=== PATIENT | male | born 1970 | race Caucasian/White ===

== ENCOUNTER 2018-11-16 21:02 | Emergency (ER) | payer MEDICAID ==
[~2018-11-16] VITALS: Ht 185.4 cm; Wt 85.9 kg
--- NOTE | 2018-11-16 22:01 | NUR ---
PT TO ROOM FROM LOBBY, GAIT STEADY.
[2018-11-16] MEDS ORDERED: ACETAMINOPHEN 325 MG TABLET ONE (22:56)
[2018-11-16 23:00] VITALS: BP 145/92
[2018-11-16] MEDS ORDERED: ACETAMINOPHEN 325 MG TABLET PO ONE (23:00)
--- NOTE | 2018-11-16 23:10 | NUR ---
PT REQUESTED TYLENOL FOR HEADACHE PRIOR TO DC, EDAPRN NOTIFIED. PT MEDICATED PER EMAR, TOLERATED WELL. PT A&O, NEURO INTACT. NO DRIFT, EQUAL GRASP BILATERALLY, FULL STRENGTH TO ALL EXTREMITIES. RESPS EVEN AND UNLABORED. PT GIVEN DC INSTRUCTIONS AND SCRIPT. PT AMB TO DC DESK WITH STEADY GAIT, NADN AT DC.
== END 2018-11-16 23:10 | disposition home or self-care (01) ==
LOC: ED 23:00
DX: J00 Acute nasopharyngitis [common cold] (principal); Z59.0 Homelessness
CPT/HCPCS: 99283

== ENCOUNTER 2018-11-19 20:13 | Emergency (ER) | payer MEDICAID ==
[~2018-11-19] VITALS: Ht 185.4 cm; Wt 87.0 kg
--- NOTE | 2018-11-19 21:00 | NUR ---
pt presents to ED with c/o anxiety due to recent homelessness, denies SI. pt also notes headache starting this pm when he was [place] a local [place] by security, states he gets headaches following stressful events. pt is a&ox4, resps even and unlabored, neuro intact. pt examined by MANNIE Dixon, awaiting social work consult.
--- NOTE | 2018-11-19 21:01 | NUR ---
ARVIN Gloria at bedside to speak with pt .
[2018-11-19] MEDS ORDERED: ACETAMINOPHEN 325 MG TABLET ONE (21:18)
[2018-11-19 21:24] VITALS: BP 148/88
--- NOTE | 2018-11-19 21:25 | NUR ---
pt medicated per emar, tolerated well. pt given resources for homlessness and discussed housing options with ARVIN Castro. pt A&o, resps even and unlabored, karen at fl. pt amb to fl desk with steady gait, all questions answered. Addendum: 11/19/18 at 2136 by JONAH pt medicated per emar, tolerated well. pt given resources for homlessness and discussed housing options with ARVIN Castro. pt A&o, resps even and unlabored, karen at fl. pt amb to dc desk with steady gait, all questions answered. pt provided with bus pass, sweatshirt, hat and gloves at fl.
[2018-11-19] MEDS ORDERED: ACETAMINOPHEN 325 MG TABLET PO ONE (21:30)
== END 2018-11-19 21:26 | disposition home or self-care (01) ==
LOC: ED 21:20
DX: F41.1 Generalized anxiety disorder (principal); M79.672 Pain in left foot; M79.671 Pain in right foot; Z00.00 Encounter for general adult medical examination without abnormal findings; Z95.0 Presence of cardiac pacemaker
CPT/HCPCS: 99284

== ENCOUNTER 2018-11-20 21:00 | Emergency (ER) | payer MEDICAID ==
[~2018-11-20] VITALS: Ht 185.4 cm; Wt 88.7 kg
--- NOTE | 2018-11-20 23:58 | NUR ---
pt called to room from lobby
[2018-11-21] MEDS ORDERED: IBUPROFEN 600 MG TABLET ONE (00:11)
--- NOTE | 2018-11-21 00:21 | NUR ---
PT HERE FOR COLD. PT MEDICATED. VSS.
[2018-11-21] MEDS ORDERED: IBUPROFEN 600 MG TABLET PO ONE (00:30)
--- NOTE | 2018-11-21 00:40 | NUR ---
PT COMPLAINING HE HAS NO WHERE TO GO AND REFUSES TO GO TO PRISON. PT VERBALIZED UNDERSTANDING OF DISCHARGE PAPERS. PT GIVEN LOCAL RESOURCES. PT GETTING DRESSED.
--- NOTE | 2018-11-21 01:04 | NUR ---
PATIENT ESCORTED OUT BY SECURITY.
[2018-11-21 01:05] VITALS: BP 165/99
== END 2018-11-21 01:08 | disposition home or self-care (01) ==
LOC: ED 11-21 01:02
DX: G43.C0 Periodic headache syndromes in child or adult, not intractable (principal); K02.9 Dental caries, unspecified; K08.89 Other specified disorders of teeth and supporting structures
CPT/HCPCS: 99283

== ENCOUNTER 2018-11-23 00:19 | Emergency (ER) | payer MEDICAID ==
[~2018-11-23] VITALS: Ht 185.4 cm; Wt 89.1 kg
[2018-11-23 00:28] VITALS: BP 164/98
--- NOTE | 2018-11-23 01:07 | NUR ---
NO ANSWER IN LOBBY AFTER MULTIPLE TIMES OF BEING CALLED. PT NOT IN LOBBY OR RESTROOMS. ASSUMED PT IS ELOPED
== END 2018-11-23 01:10 | disposition home or self-care (01) ==
LOC: ED 01:04
DX: F29 Unspecified psychosis not due to a substance or known physiological condition (principal); Z53.21 Procedure and treatment not carried out due to patient leaving prior to being seen by health care provider

== ENCOUNTER 2018-11-23 03:33 | Emergency (ER) | payer MEDICAID ==
[~2018-11-23] VITALS: Ht 185.4 cm; Wt 89.1 kg
[2018-11-23 03:36] VITALS: BP 159/104
== END 2018-11-23 04:27 | disposition left against medical advice (07) ==
LOC: ED 04:21
DX: M79.672 Pain in left foot (principal); M79.671 Pain in right foot; Z72.9 Problem related to lifestyle, unspecified
CPT/HCPCS: 99281

== ENCOUNTER 2018-11-23 23:53 | Emergency (ER) | payer MEDICAID | END 2018-11-24 00:02 | disposition left against medical advice (07) | LOC: ED 23:59 | DX: M79.671 Pain in right foot (principal); M79.672 Pain in left foot; Z53.21 Procedure and treatment not carried out due to patient leaving prior to being seen by health care provider ==

== ENCOUNTER 2018-11-25 12:14 | Emergency (ER) | payer MEDICAID ==
[~2018-11-25] VITALS: Ht 185.4 cm; Wt 89.0 kg
[2018-11-25 12:35] VITALS: BP 172/106
--- NOTE | 2018-11-25 13:38 | NUR ---
pt left prior to DC instructions
== END 2018-11-25 13:38 | disposition home or self-care (01) ==
LOC: ED 13:10
DX: G89.11 Acute pain due to trauma (principal); M79.672 Pain in left foot; M79.671 Pain in right foot
CPT/HCPCS: 99283

== ENCOUNTER 2018-12-01 16:49 | Emergency (ER) | payer MEDICAID ==
[~2018-12-01] VITALS: Ht 185.4 cm; Wt 89.0 kg
[2018-12-01 16:54] VITALS: BP 157/99
[2018-12-01] MEDS ORDERED: LIDOCAINE-MPF 1%, 5ML ONE (17:46)
[2018-12-01] MEDS ORDERED: CEPHALEXIN 500 MG CAPSULE ONE (18:17)
[2018-12-01] MEDS ORDERED: SULFAMETH./TRIMETHOPRIM DS 800MG/160MG TABLET ONE (18:17)
[2018-12-01] MEDS ORDERED: CEPHALEXIN 500 MG CAPSULE PO ONE (18:30)
[2018-12-01] MEDS ORDERED: SULFAMETH./TRIMETHOPRIM DS 800MG/160MG TABLET PO ONE (18:30)
== END 2018-12-01 18:32 | disposition home or self-care (01) ==
LOC: ED 18:20
DX: L02.414 Cutaneous abscess of left upper limb (principal)
CPT/HCPCS: 10060; 99283

== ENCOUNTER 2018-12-03 11:47 | Emergency (ER) | payer MEDICAID ==
[~2018-12-03] VITALS: Ht 185.4 cm; Wt 88.7 kg
[2018-12-03 12:16] VITALS: BP 193/92
[2018-12-03] MEDS ORDERED: BACITRACIN ZINC OINT 500U/GM, 0.9 GM ONE (12:54)
== END 2018-12-03 13:58 | disposition home or self-care (01) ==
LOC: ED 12:43
DX: L02.414 Cutaneous abscess of left upper limb (principal); F41.1 Generalized anxiety disorder; F17.200 Nicotine dependence, unspecified, uncomplicated
CPT/HCPCS: 99283

== ENCOUNTER 2019-01-20 14:06 | Emergency (ER) | payer MEDICAID ==
[~2019-01-20] VITALS: Ht 180.3 cm; Wt 80.0 kg
--- NOTE | 2019-01-20 14:29 | NUR ---
PT. ARRIVES BY [facility] WITH C/O PUBLIC DRUNKENESS. PT. IS ORIENTED TO HIS NAME AND PLACE. PT. HAS NO MEDICAL COMPLAINTS. IV ACCESS WAS ESTABLISHED IN THE FIELD. PT. HAS A #18G IN PL[address]. PT.'S HOB IS ELEVATED GREATER THAN 30 DEGREES. PT. HAS BLANKETS IN PLACE FOR WARMTH. PT. WAS PLACED ON 02 AT 2L TO MAINTAIN HIS OXYGEN SATS.
--- NOTE | 2019-01-20 15:10 | NUR ---
Resting in [facility]. RR = 16. No needs.
[2019-01-20 15:54] VITALS: BP 107/69
--- NOTE | 2019-01-20 16:00 | NUR ---
Patient/Caregiver given discharge instructions and they have confirmed that they understand the instructions. Patient ambulatory with steady gait.
== END 2019-01-20 16:01 | disposition home or self-care (01) ==
LOC: ED 15:55
DX: F10.220 Alcohol dependence with intoxication, uncomplicated (principal)
CPT/HCPCS: 99283

== ENCOUNTER 2019-01-21 15:09 | Emergency (ER) | payer MEDICAID ==
[2019-01-21 15:14] VITALS: BP 108/65
--- NOTE | 2019-01-21 15:25 | NUR ---
Assumed care of patient. Patient asking for food. When asked why he came to the ED, patient states, "I couldn't stop drinking vodka". Patient otherwise uncooperative with exam. Will continue to monitor.
--- NOTE | 2019-01-21 15:41 | NUR ---
Patient refused to sign DC paperwork. Patient ambulatory with steady gait.
== END 2019-01-21 15:42 | disposition home or self-care (01) ==
LOC: ED 15:36
DX: F10.220 Alcohol dependence with intoxication, uncomplicated (principal)
CPT/HCPCS: 99281